=== PATIENT | male | born 1970 | race Caucasian/White ===

== ENCOUNTER 2024-10-02 15:27 | Emergency (ER) | payer OTHER, SELFPAY ==
--- NOTE | ~2024-10-02 | XR_ITS ---
XR chest 2V Ordering provider: Jerson Summers MD History: 54 years Male with . chest pain . Comparison: None. FINDINGS: MEDIASTINUM: The cardiac silhouette is not enlarged. LUNGS: No effusions or pneumothorax. Bilateral basal opacification suggestive of atelectasis versus pneumonia more on the left side. OTHER: No free air under the diaphragm. IMPRESSION: Bilateral basal atelectasis versus pneumonia. Reviewed, dictated and finalized at location A.
--- NOTE | 2024-10-02 15:29 | ECG_ITS ---
Test Date: 2024-10-02 15:34:03 Measurements Intervals [place] Rate: 72 P: 11 AL: 178 QRS: -10 QRSD: 108 T: 37 QT: 373 QTc: 409 Interpretive Statements SINUS RHYTHM DELAYED PRECORDIAL R/S TRANSITION BORDERLINE ECG No previous ECG available for comparison Electronically Signed On 10-02-2024 16:25:57 CDT by Rupesh Toussaint D.O.
[2024-10-02 15:47] LABS: Basophils Percent Auto 0.2 % (0.2-1.2); Eosinophils Absolute Auto 0.1 K/mm3 (0-0.3); Eosinophils Percent Auto 1.5 % (0-4.4); Hematocrit 43.8 % (42.0-52.0); Hemoglobin 14.2 g/dL (14.0-18.0); Immature Granulocyte Absolute 0.03 K/mm3 (0.00-0.031); Immature Granulocyte Percent A 0.3 % (0-0.5); Lymphocytes Absolute Auto 2.09 K/mm3 (0.9-3.2); Lymphocytes Percent Auto 24.3 % (18.3-44.2); Mean Corpuscular HGB Conc 32.4 g/dl (32-36); Mean Corpuscular Hemoglobin 29.2 pg (26-34); Mean Corpuscular Volume 90.1 fl (80-100); Monocytes Absolute Auto 0.6 K/mm3 (0.1-0.6); Monocytes Percent Auto 7.3 % (2.6-8.5); Neutrophils Absolute Auto 5.7 K/mm3 (1.3-6.7); Neutrophils Percent Auto 66.4 % (45.5-73.1); Platelet Count Result 274 k/mm3 (150-375); Red Blood Count 4.86 M/mm3 (4.6-6.20); Red Cell Distribution Width 13.1 % (11.5-14.5); White Blood Count 8.6 K/mm3 (4.5-10.0)
[2024-10-02 15:50] VITALS: BP 139/84; PULSE 80; RESP 22; TEMP 36.9; O2SAT 100
[2024-10-02 15:58] LABS: Alanine Aminotransferase 28 U/L (6-50); Albumin Level 4.2 g/dL (3.5-5.1); Alkaline Phosphatase 102 U/L (38-126); Anion Gap 10 mmol/L (4-12); Aspartate Amino Transferase 36 U/L (17-59); Bilirubin,Total 0.5 mg/dL (0.2-1.3); Blood Urea Nitrogen 14 mg/dL (9-20); Calcium 9.2 mg/dL (8.4-10.2); Carbon Dioxide 28 mmol/L (22-30); Chloride 101 mmol/L (98-107); Estimated CRCL calculation 112 ml/min; Estimated Glomerular Filt Rate > 60; Glucose 98 mg/dL (65-110); Lipase 67 U/L (23-300); Partial Thromboplastin Time 25.8 Seconds (22.3-36.8); Potassium 3.8 mmol/L (3.4-5.0); Sodium 139 mmol/L (137-145); Total Protein 7.5 g/dL (6.3-8.2)
[2024-10-02 16:07] LABS: Prothrombin Time 12.9 Seconds (11.1-14.7)
[2024-10-02 16:09] LABS: Troponin I < 0.012 ng/mL (0.000-0.034)
--- NOTE | 2024-10-02 18:37 | ED_ITS ---
HPI - Chest Pain General Chief Complaint: Chest Pain Stated Complaint: chest pain Time Seen by Provider: 10/02/24 18:28 History of Present Illness HPI narrative: 54-year-old male with no reported past medical history presents to the emergency department for left chest wall pain for 1 week. Patient states the pain is worse when he sneezes and coughs. He reports a mild nonproductive cough. Denies fever, shortness of breath, exertional symptoms, lower extremity edema, hemoptysis, history of VTE, recent surgeries or hospitalizations. He states his pain started to improve yesterday and is no longer having any pain today. He denies history of cardiac disease. He does state that his father had history of heart disease. He admits to smoking cigars socially. Review of Systems 2 Review of Systems: All systems reviewed & are unremarkable except as noted in HPI and below Exam 2 Narrative: GENERAL: Well-appearing, well-nourished, and in no acute distress. HEAD: Normocephalic, atraumatic. EYES: EOMI. ENT: Nares clear, no rhinorrhea or epistaxis. Mucous membranes moist. NECK: Supple. CHEST: Clear to auscultation. No respiratory distress. No tenderness to chest wall. No overlying skin changes, crepitus, step-offs or deformities HEART: Regular rate and rhythm. No murmur heard. Normal peripheral pulses. ABDOMEN: Soft, nontender, nondistended, normal active bowel sounds. EXTREMITIES: Normal range of motion. No edema. Negative Homans bilaterally SKIN: Warm, dry, no rash. NEURO: No focal deficits. Alert and oriented x3 Course Vital Signs Vital signs: Vital Signs Temperature 98.4 F 10/02/24 15:50 Pulse Rate 80 10/02/24 15:50 Respiratory Rate 22 H 10/02/24 15:50 Blood Pressure 139/84 10/02/24 15:50 Pulse Oximetry 100 10/02/24 15:50 Oxygen Delivery Room Air 10/02/24 15:50 Temperature 98.4 F 10/02/24 15:50 Pulse Rate 80 10/02/24 15:50 Respiratory Rate 22 H 10/02/24 15:50 Blood Pressure 139/84 10/02/24 15:50 Pulse Oximetry 100 10/02/24 15:50 Oxygen Delivery Room Air 10/02/24 15:50 MDM - Chest Pain MDM Narrative Medical decision making narrative: 54-year-old male with no reported past medical history presents to the emergency department for left-sided chest wall pain occurs when he coughs or sneezes for the past week. He states his symptoms started to improve yesterday and he is no longer having any symptoms today. Vitals with mild tachypnea of 22 which has since resolved. Patient is afebrile and nontoxic appearing resting comfortably in exam bed. His lab work shows no leukocytosis or anemia. Chemistries are unremarkable. EKG shows normal sinus rhythm with rate of 72, normal NV interval, normal QRS duration, normal QTC, no ST elevations or depressions. Troponin is undetectable. Chest x-ray shows bilateral basal atelectasis versus pneumonia. Low suspicion for pneumonia given no leukocytosis, no fevers. I did consider PE however very low suspicion for this given no tachycardia, no hypoxia, no risk factors for DVT or PE and he is currently asymptomatic. Patient was updated on his results. Suspect MSK etiology. Will send naproxen prn to the pharmacy advised to follow-up closely with his PCP. Discussed strict ED return precautions. He is agreeable with the plan verbalized understanding. Discharged in stable condition. Lab Data 10/02/24 15:39 10/02/24 15:39 Labs: Lab Results 10/02/24 Range/Units 15:39 WBC 8.6 (4.5-10.0) K/mm3 RBC 4.86 (4.6-6.20) M/mm3 Hgb 14.2 (14.0-18.0) g/dL Hct 43.8 (42.0-52.0) % MCV 90.1 (80-100) fl MCH 29.2 (26-34) pg MCHC 32.4 (32-36) g/dl RDW 13.1 (11.5-14.5) % Plt Count 274 (150-375) k/mm3 MPV 9.0 (7.4-10.4) fl Immature Gran % (Auto) 0.3 (0-0.5) % Neut % (Auto) 66.4 (45.5-73.1) % Lymph % (Auto) 24.3 (18.3-44.2) % [place] % (Auto) 7.3 (2.6-8.5) % Eos % (Auto) 1.5 (0-4.4) % Baso % (Auto) 0.2 (0.2-1.2) % Lymph # (Auto) 2.09 (0.9-3.2) K/mm3 [place] # (Auto) 0.6 (0.1-0.6) K/mm3 Eos # (Auto) 0.1 (0-0.3) K/mm3 Baso # (Auto) 0.0 (0.0-0.1) K/mm3 Abs Immat Gran (auto) 0.03 (0.00-0.031) K/mm3 Absolute Neuts (auto) 5.7 (1.3-6.7) K/mm3 Absolute Nucleated RBC 0.000 (0.0-0.012) K/mm3 Nucleated RBC % 0.0 (0.0-0.2) % PT 12.9 (11.1-14.7) Seconds INR 1.0 APTT 25.8 (22.3-36.8) Seconds Sodium 139 (137-145) mmol/L Potassium 3.8 (3.4-5.0) mmol/L Chloride 101 (98-107) mmol/L Carbon Dioxide 28 (22-30) mmol/L Anion Gap 10 (4-12) mmol/L BUN 14 (9-20) mg/dL Creatinine 0.74 (0.7-1.3) mg/dL Estim Creat Clear Calc 112 ml/min Estimated GFR > 60 (59 - ) Glucose 98 (65-110) mg/dL Calcium 9.2 (8.4-10.2) mg/dL Total Bilirubin 0.5 (0.2-1.3) mg/dL AST 36 (17-59) U/L ALT 28 (6-50) U/L Alkaline Phosphatase 102 (38-126) U/L Troponin I < 0.012 (0.000-0.034) ng/mL Total Protein 7.5 (6.3-8.2) g/dL Albumin 4.2 (3.5-5.1) g/dL Lipase 67 (23-300) U/L Discharge Plan Discharge Clinical Impression: Atypical chest pain Patient Disposition: Home Condition: Stable Instructions: Antibiotic Form, Chest Pain (ED) Additional Instructions: You were evaluated in the emergency department for chest pain. Your workup here is reassuring. Her presentation is consistent with a muscular or rib strain as discussed. Please take the anti-inflammatories as needed for pain. Follow-up closely with her primary care provider. Return to the emergency department if you develop new or worsening chest pain or shortness of breath, fevers, swelling to her legs or other concerning symptoms. Patient Language: Spanish Prescriptions: New naproxen 500 mg tablet 500 mg PO BID PRN (Reason: pain) Qty: 20 0RF Follow-up/Referrals: Igor,Yazan Prajapati MD [Primary Care Provider] - Quality HEART score for chest pain patients History: slightly suspicious ECG: normal Age: > 45 and < 65 years Risk factors: 1 or 2 risk factors Troponin: < or = to 1x normal limit Heart score: 2
== END 2024-10-02 19:10 | disposition home or self-care (01) ==
LOC: ANHED 18:45
PROVIDERS: Emergency Medicine; Emergency Provider Physician Assistant; PCP Internal Medicine
DX: R07.89 Other chest pain (principal); R94.31 Abnormal electrocardiogram [ECG] [EKG]
CPT/HCPCS: 36415; 71046; 80053; 83690; 84484; 85025; 85610; 85730; 93005; 99284